=== PATIENT | female | born 2000 | race Two or more races ===

== ENCOUNTER 2024-03-06 11:45 | Emergency (ER) | payer BC ==
[2024-03-06] MEDS ORDERED: DEXAMETHASONE SOD PHOSPHATE 10 MG/ML 1 ML VIAL ONE (12:57)
[2024-03-06] MEDS ORDERED: ACET/COD 300 MG/30 MG STARTER PACK 6 TAB BTL PO ONE (13:11)
== END 2024-03-06 13:16 | disposition home or self-care (01) ==
LOC: EC 11:45 → EDSTATUS 16:20
DX: J36 Peritonsillar abscess (principal)
CPT/HCPCS: 96372; 99283